=== PATIENT | female | born 1965 | race Caucasian/White ===

== ENCOUNTER 2018-05-15 13:34 | Inpatient (IN) | payer OTHER ==
[~2018-05-15] VITALS: Ht 162.6 cm; Wt 128.8 kg
[2018-05-15] MEDS ORDERED: SYNTHROID137 MCG PO (13:41)
[2018-05-15] MEDS ORDERED: HYDROCHLOROTH12.5 M1 PO (13:41)
[2018-05-15] MEDS ORDERED: PRINIVIL20 MG PO (13:42)
[2018-05-15 15:17] LABS: BASOPHILS 0.6 % (0-2); EOSINOPHILS 3.3 % (0-7); HEMATOCRIT 39.7 % (36.0-48.0); IMMATURE GRANULOCYTES 0.2 % (0-5); LYMPHOCYTES 43.8 % (15-50); MCH 30.2 pg (26.0-34.0); MCHC 32.7 g/dL (31.0-37.0); MCV 92.3 fL (80.0-100.0); MEAN PLATELET VOLUME 9.5 fL (7.4-10.4); MONOCYTES 10.1 % (2-11); RDW 14.8 % (11.5-14.5); WBC 4.8 10x3/uL (4.8-10.8)
[2018-05-15 15:29] LABS: PLATELET COUNT 252 10x3/uL (130-400)
[2018-05-15 15:34] LABS: ALBUMIN 3.5 g/dL (3.4-5.0); ALKALINE PHOSPHATASE 73 U/L (46-116); ALT (SGPT) 29 U/L (10-68); BILIRUBIN - TOTAL 0.34 mg/dL (0.2-1.3); CALC OSMOLALITY 278 mosm/kg (275-300); CALCIUM 8.4 mg/dL (8.5-10.1); CARBON DIOXIDE 27.8 mmol/L (21.0-32.0); CHLORIDE - SERUM 106 mmol/L (98-107); CREATININE - SERUM 1.1 mg/dL (0.6-1.3); GLUCOSE 94 mg/dL (74-106); POTASSIUM - SERUM 4.1 mmol/L (3.5-5.1); PROTEIN - SERUM 7.6 g/dL (6.4-8.2); SODIUM 139 mmol/L (136-145); UREA NITROGEN 14 mg/dL (7-18); eGFR NON AFRICAN AMERICAN 55 mL/min (90-120)
[2018-05-15 15:44] LABS: CKMB 3.4 U/L (0.0-3.6); CREATINE KINASE 197 UL (21-215); PRO BNP 1003 pg/mL (0-125)
[2018-05-15 16:08] LABS: APTT 26.6 SECONDS (22.8-39.4); INR 0.98 (0.85-1.17); PROTIME 12.6 SECONDS (11.6-15.0)
[2018-05-15 19:30] VITALS: BP 142/91
[2018-05-15 21:33] VITALS: BP 125/78; BMI 49.6
[2018-05-15 22:50] VITALS: BP 125/78
[2018-05-16 01:58] VITALS: BP 126/65
[2018-05-16 05:21] LABS: BASOPHILS 0.9 % (0-2); EOSINOPHILS 3.8 % (0-7); HEMOGLOBIN 12.5 g/dL (12-16); IMMATURE GRANULOCYTES 0.2 % (0-5); LYMPHOCYTES 49.8 % (15-50); MCH 30.1 pg (26.0-34.0); MCHC 32.9 g/dL (31.0-37.0); MCV 91.6 fL (80.0-100.0); MEAN PLATELET VOLUME 9.7 fL (7.4-10.4); MONOCYTES 8.5 % (2-11); NEUTROPHILS 36.8 % (40-80); PLATELET COUNT 259 10x3/uL (130-400); RBC 4.15 10x6/uL (4.00-5.40); RDW 14.7 % (11.5-14.5); WBC 4.5 10x3/uL (4.8-10.8)
[2018-05-16 05:41] LABS: ALBUMIN 3.2 g/dL (3.4-5.0); ANION GAP 11.9 mmol/L (8-16); BILIRUBIN - TOTAL 0.42 mg/dL (0.2-1.3); CALCIUM 8.4 mg/dL (8.5-10.1); CARBON DIOXIDE 25.1 mmol/L (21.0-32.0); CREATININE - SERUM 1.1 mg/dL (0.6-1.3)
[2018-05-16 06:15] VITALS: BP 118/85
[2018-05-16 07:56] VITALS: BP 128/77
[2018-05-16 10:44] VITALS: BP 133/82
[2018-05-16 14:17] VITALS: BP 118/83
[2018-05-16 20:00] VITALS: BP 134/89
[2018-05-17 04:00] VITALS: BP 123/73
[2018-05-17 05:59] LABS: HEMATOCRIT 39.1 % (36.0-48.0); HEMOGLOBIN 12.7 g/dL (12-16); MCH 29.8 pg (26.0-34.0); MCHC 32.5 g/dL (31.0-37.0); MCV 91.8 fL (80.0-100.0); MEAN PLATELET VOLUME 9.7 fL (7.4-10.4); PLATELET COUNT 248 10x3/uL (130-400); RBC 4.26 10x6/uL (4.00-5.40); RDW 14.6 % (11.5-14.5); WBC 4.2 10x3/uL (4.8-10.8)
[2018-05-17 06:06] LABS: APTT 41.2 SECONDS (22.8-39.4); INR 1.03 (0.85-1.17); PROTIME 13.1 SECONDS (11.6-15.0)
[2018-05-17 06:24] LABS: ANION GAP 11.9 mmol/L (8-16); CALCIUM 8.6 mg/dL (8.5-10.1); CREATININE - SERUM 0.9 mg/dL (0.6-1.3); POTASSIUM - SERUM 3.9 mmol/L (3.5-5.1); THYROID STIMULATING HORMONE 1.59 uIU/mL (0.36-3.74)
[2018-05-17 07:21] LABS: EOSINOPHILS 3 % (0-7); LYMPHOCYTES 55 % (15-50); MONOCYTES 4 % (2-11); NEUTROPHILS 38 % (40-80); PLATELET ESTIMATE NORMAL
[2018-05-17 07:22] LABS: HYPOCHROMASIA OCC
[2018-05-17 08:19] VITALS: BP 121/86
[2018-05-17 11:42] VITALS: BP 145/88; Ht 162.6 cm; Wt 128.8 kg
[2018-05-17] MEDS ORDERED: ELIQUIS5 MG PO (13:13)
[2018-05-18 06:15] LABS: CA 15-3 15.8 U/mL (0.0-25.0); CA125 7.5 U/mL (0.0-38.1); CEA 1.6 ng/mL (0.0-4.7)
[2018-05-18 11:21] LABS: FOLATE (FOLIC ACID) - SERUM 12.7 ng/mL (>3.0)
[2018-05-18 15:23] LABS: SPE - A/G RATIO 0.9 (0.7-1.7); SPE - ALBUMIN 3.2 g/dL (2.9-4.4); SPE - ALPHA-1 GLOBULIN 0.2 g/dL (0.0-0.4); SPE - ALPHA-2 GLOBULIN 0.8 g/dL (0.4-1.0); SPE - BETA GLOBULIN 1.2 g/dL (0.7-1.3); SPE - GAMMA GLOBULIN 1.2 g/dL (0.4-1.8); SPE - M-SPIKE Not Observed g/dL (Not Observed); SPE - TOTAL PROTEIN 6.6 g/dL (6.0-8.5)
[2018-05-22 22:07] LABS: FACTOR II DNA ANALYSIS Negative (())
== END 2018-05-17 14:43 | disposition home or self-care (01) | DRG 176 ==
LOC: D.ER 13:34 → D.EDHOLD 16:33 → D.M2 19:16 → OBSVTIME 19:16 → D.M2 19:53
PROVIDERS: Family Medicine; Internal Medicine Hematology & Oncology; Radiology Vascular & Interventional Radiology
DX: I26.99 Other pulmonary embolism without acute cor pulmonale (principal); Z68.42 Body mass index [BMI] 45.0-49.9, adult; I10 Essential (primary) hypertension; E03.9 Hypothyroidism, unspecified; N28.1 Cyst of kidney, acquired; M35.00 Sjogren syndrome, unspecified; E66.01 Morbid (severe) obesity due to excess calories

== ENCOUNTER → 2018-10-02 14:40 | Outpatient (CLI) | payer OTHER ==
[2018-05-17 11:42] VITALS: BMI 48.7
[~2018-10-02 14:40] MED LIST: ELIQUIS5 MG PO; HYDROCHLOROTH12.5 M1 PO; PRINIVIL20 MG PO; SYNTHROID137 MCG PO
== END | disposition home or self-care (01) ==
LOC: D.MRI 14:40
DX: M46.96 Unspecified inflammatory spondylopathy, lumbar region (principal)

== ENCOUNTER → 2018-11-02 09:05 | Outpatient (CLI) | payer OTHER ==
[2018-05-17 11:42] VITALS: BMI 48.7
== END | disposition home or self-care (01) ==
LOC: D.CT 09:05
PROVIDERS: ATTEND Internal Medicine Hematology & Oncology
DX: C64.9 Malignant neoplasm of unspecified kidney, except renal pelvis (principal)

== ENCOUNTER → 2019-01-09 16:27 | Outpatient (CLI) | payer OTHER | END | disposition home or self-care (01) | LOC: D.LABREF 16:27 | DX: M17.11 Unilateral primary osteoarthritis, right knee (principal); Z11.8 Encounter for screening for other infectious and parasitic diseases ==

== ENCOUNTER 2019-01-11 14:49 | Inpatient (IN) | payer BC ==
[~2019-01-11] VITALS: Ht 162.6 cm; Wt 99.8 kg
[2019-02-12] MEDS ORDERED: BACTROBAN NASAL1 GM NASAL (14:26)
[2019-02-12] MEDS ORDERED: TYLENOL PO (14:31)
[2019-02-13 11:47] LABS: BASOPHILS 0.9 % (0-2); EOSINOPHILS 2.5 % (0-7); HEMATOCRIT 41.8 % (36.0-48.0); HEMOGLOBIN 13.8 g/dL (12-16); LYMPHOCYTES 46.8 % (15-50); MCH 30.9 pg (26.0-34.0); MCV 93.5 fL (80.0-100.0); MEAN PLATELET VOLUME 9.7 fL (7.4-10.4); MONOCYTES 10.4 % (2-11); NEUTROPHILS 39.4 % (40-80); RBC 4.47 10x6/uL (4.00-5.40); RDW 14.5 % (11.5-14.5); WBC 4.4 10x3/uL (4.8-10.8)
[2019-02-13 11:50] LABS: PLATELET COUNT 298 10x3/uL (130-400)
[2019-02-13 12:00] LABS: CARBON DIOXIDE 30.1 mmol/L (21.0-32.0); CREATININE - SERUM 1.1 mg/dL (0.6-1.3); POTASSIUM - SERUM 4.1 mmol/L (3.5-5.1)
[2019-02-13 12:16] LABS: APPEARANCE CLEAR (CLEAR); BILIRUBIN NEGATIVE (NEGATIVE); COLOR YELLOW (YELLOW); GLUCOSE NEGATIVE (NEGATIVE); KETONE NEGATIVE (NEGATIVE); NITRITE NEGATIVE (NEGATIVE); PROTEIN NEGATIVE (NEGATIVE); SPECIFIC GRAVITY 1.005 (1.005-1.020); UROBILINOGEN NORMAL (NORMAL)
[2019-02-13 12:21] LABS: APTT 26.5 SECONDS (22.8-39.4); INR 1.14 (0.85-1.17); PROTIME 14.1 SECONDS (11.6-15.0)
[2019-02-18] MEDS ORDERED: COZAAR50 MG (07:58)
[2019-02-18] MEDS ORDERED: LOVENOX120 MG/0.8 SQ (08:01)
[2019-02-18 08:19] VITALS: BP 144/94; BMI 54.2
[2019-02-18 14:01] VITALS: BP 104/66
[2019-02-18 19:50] VITALS: BP 104/66
[2019-02-18 20:00] VITALS: BP 104/57
[2019-02-19] VITALS: BP 96/44
[2019-02-19 04:00] VITALS: BP 94/55
[2019-02-19 06:04] LABS: HEMATOCRIT 34.2 % (36.0-48.0); HEMOGLOBIN 10.8 g/dL (12-16); MCH 29.8 pg (26.0-34.0); MCHC 31.6 g/dL (31.0-37.0); MCV 94.5 fL (80.0-100.0); MEAN PLATELET VOLUME 9.8 fL (7.4-10.4); RBC 3.62 10x6/uL (4.00-5.40); RDW 14.7 % (11.5-14.5); WBC 5.8 10x3/uL (4.8-10.8)
[2019-02-19 09:30] VITALS: BP 113/72
[2019-02-19 10:26] LABS: CKMB 2.5 U/L (0.0-3.6); CREATINE KINASE 519 UL (21-215); CREATININE - SERUM 1.1 mg/dL (0.6-1.3)
[2019-02-19 10:28] LABS: TROPONIN-I < 0.017 ng/mL (0.000-0.060)
[2019-02-19 14:01] VITALS: BP 120/75
[2019-02-19 17:42] VITALS: BP 122/73
[2019-02-19 17:55] VITALS: Ht 162.6 cm; Wt 99.8 kg
[2019-02-19 20:00] VITALS: BP 156/82
[2019-02-20] VITALS: BP 123/67
[2019-02-20 04:00] VITALS: BP 105/68
[2019-02-20 05:13] LABS: HEMATOCRIT 32.8 % (36.0-48.0); HEMOGLOBIN 10.4 g/dL (12-16); MCH 30.1 pg (26.0-34.0); MCHC 31.7 g/dL (31.0-37.0); MCV 94.8 fL (80.0-100.0); MEAN PLATELET VOLUME 9.7 fL (7.4-10.4); RBC 3.46 10x6/uL (4.00-5.40); RDW 15.1 % (11.5-14.5); WBC 4.6 10x3/uL (4.8-10.8)
[2019-02-20 08:29] VITALS: BP 145/69
[2019-02-20 13:26] VITALS: BP 117/72
--- NOTE | 2019-02-20 14:47 | MORECARE ---
CASE MANAGEMENT DISCHARGE SUMMARY PATIENT: MICK PATEL UNIT: [id number] ADM DATE: 02/18/19 AGE: 53 : 61 SEX: F ROOM/BED: D.2211 AUTHOR: ROM CAMACHO PHYSICIAN: REFERRING PHYSICIAN: JUDY POLANCO MD DATE OF SERVICE: 02/20/19 Discharge Plan Patient Name: MICK PATEL [facility] : 1965 Planned Disposition: Home or Self Care Anticipated Discharge Date: Discharge Date: Expected LOS: Initial Reviewer: [email or web address] Initial Review Date: 02/18/2019 Generated: 02/20/19 3:47 pm DCPIA - Discharge Planning Initial Assessment Updated by [email or web address]: Denisa Bruce on 02/20/19 2:46 pm * Is the patient Alert and Oriented? Yes * How many steps to enter\exit or inside your home? * PCP [place] * Pharmacy [facility] * Preadmission Environment Home with Family * ADLs Independent * Equipment Bedside Commode Walker * Other Equipment CPM * List name and contact numbers for known caregivers / representatives who currently or will assist patient after discharge: ABDOUL JORGE [phone] * Verbal permission to speak to the caregivers and representatives has been obtained from the patient. N/A * Community resources currently utilized None * Additional services required to return to the preadmission environment? Yes * Can the patient safely return to the preadmission environment? Yes * Has this patient been hospitalized within the prior 30 days at any hospital? No Patient Name: MICK PATEL Page [id number] at 1447 All edits/amendments must be made on the electronic document DICTATION DATE: 02/20/191446 MACHINE BURRER: JOSE DE JESUS 02/20/191446 RPT#: [id number] DC DATE: STATUS: ADM IN [facility] [address] [place] [address] END OF REPORT
--- NOTE | 2019-02-20 15:08 | MORECARE ---
CASE MANAGEMENT DISCHARGE SUMMARY PATIENT: MICK PATEL UNIT: [id number] ADM DATE: 02/18/19 AGE: 53 : 61 SEX: F ROOM/BED: D.2211 AUTHOR: JANICE,DOC PHYSICIAN: REFERRING PHYSICIAN: JUDY POLANCO MD DATE OF SERVICE: 02/20/19 Discharge Plan Patient Name: MICK PATEL Facility: [facility]:[place] : 1965 Planned Disposition: Home or Self Care Anticipated Discharge Date: Discharge Date: Expected LOS: Initial Reviewer: [email or web address] Initial Review Date: 02/18/2019 Generated: 02/20/19 4:07 pm Comments DCP- Discharge Planning Updated by [email or web address]: Denisa Bruce on 02/20/19 1:[address] Patient Name: MICK PATEL Admission Status: Elective Accout number: [id number] Admission Date: 02-18-2019 : 1965 Admission Diagnosis: Attending: JUDY POLANCO Current LOS: 2 Anticipated DC Date: Planned Disposition: Home or Self Care Primary Insurance: [employer] EXCH[employer] Discharge Planning Comments: CM met with patient to complete initial dc planning assessment. CM educated patient on the CM role and verbal consent given by patient to complete assessment. Patient lives at home with her where she was independent with her care. At discharge patient plans to return home and feels this is a safe discharge. She is concerned about her therapy and going home. We will see how she progresses with therapy tomorrow. CM discussed availability of home health, rehab services, and medical equipment. CPM, walker, bedside commode at home. She would like to go to OP PT at [facility]. We will see how she does before making that appointment. Patient denied known discharge needs at this time. CM will continue to follow and will assist as needed with dc plans/needs. Industrial Workers: Denisa Bruce DCPIA - Discharge Planning Initial Assessment Updated by [email or web address]: Denisa Bruce on 02/20/19 2:46 pm * Is the patient Alert and Oriented? Yes * How many steps to enter\exit or inside your home? * PCP [place] * Pharmacy [facility] * Preadmission Environment Home with Family * ADLs Independent * Equipment Bedside Commode Walker * Other Equipment CPM * List name and contact numbers for known caregivers / representatives who currently or will assist patient after discharge: ABDOUL PATEL [phone] * Verbal permission to speak to the caregivers and representatives has been obtained from the patient. N/A * Community resources currently utilized None * Additional services required to return to the preadmission environment? Yes * Can the patient safely return to the preadmission environment? Yes * Has this patient been hospitalized within the prior 30 days at any hospital? No Last DP export: 02/20/19 1:47 p Patient Name: MICK PATEL Page [id number] at 1508 All edits/amendments must be made on the electronic document DICTATION DATE: 02/20/191506 CHEMICAL MACHINE TENDER: JOSE DE JESUS 02/20/191506 RPT#: [id number] DC DATE: STATUS: ADM IN [facility] [address] [place] [address] END OF REPORT
--- NOTE | 2019-02-20 15:43 | OP ---
PATIENT NAME: MICK PATEL MEDICAL RECORD: [id number] :[birth year] LOCATION:D.MS [address] ADMISSION DATE:02/18/19 SURGEON: JUDY POLANCO MD DATE OF OPERATION: 02/18/2019 PREOPERATIVE DIAGNOSIS: Degenerative arthritis, right knee. POSTOPERATIVE DIAGNOSIS: Degenerative arthritis, right knee. PROCEDURE: Right total knee arthroplasty. SURGEON: Judy Polanco MD STATUE CARVER: SKY Henry INTRAOPERATIVE COMPLICATIONS: None. SUMMARY OF PATHOLOGIC FINDINGS: The patient was indeed found to have grade IV degenerative arthritis of medial femoral condyle and patellofemoral joint, consistent with preoperative symptoms and x-rays. OPERATIVE SUMMARY IN DETAIL: After obtaining the appropriate preoperative orthopedic surgery consent as well as anesthetic consultation, evaluation, and clearance, the patient was brought to the operating room and placed on the operating table in the supine position. After general laryngeal mask airway was administered, tourniquet was placed about the proximal aspect of the patient's right lower extremity. The right lower extremity was then prepped and draped in routine sterile fashion. At this time, the appropriate time-out was performed, going over all specific patient identifiers and allergies as well as meds given. All were in agreement. At this point, the leg was elevated and exsanguinated. Tourniquet was inflated to 350 mmHg. Routine midline incision was taken down for paramedian arthrotomy, which was performed. The patella was then everted and distal femur was exposed. Soft tissue excision was done in usual fashion followed by intramedullary guide hole created for intramedullary guided distal femoral cut. Having completed this, the tibia was completely exposed. Again, soft tissue excision was done in the usual fashion. Intramedullary guide hole was created for intramedullary guided tibial cut. After the cuts were made, measurements were taken and size 4 was determined for distal femur and proximal tibia. Size 4 chamfer cuts were created. Trials corresponding to the final implants were put into place, taken through range of motion, and found to be stable in all planes. Distal femoral and proximal tibia were prepared for press-fit arthroplasty. Patella was cut and again it was prepared for press-fit arthroplasty. At this point, the wound was irrigated with pulsatile lavage guest attendant. All fragments were removed and all soft tissue that needed to be removed was likewise removed. Having completed this, press-fit components were put into place with excellent fit. Knee was taken through range of motion and found to be stable in all planes with good patellar tracking. At this point, wound closure was achieved by SKY Jenkins, with #2 Ethibond followed by #1 Vicryl, 2-0 Vicryl, and skin alpesh. Prior to closing the capsulotomy, the knee was infiltrated with 1 gram of vancomycin and 1 gram of tobramycin. Sterile dressings were applied. Tourniquet was deflated. The patient was awakened and taken to recovery room in stable condition. All final needle and sponge counts were correct. TRANSINT:[id number] Voice Confirmation ID: [id number] DOCUMENT ID: [id number] OPERATIVE REPORT [id number] MICK PATEL MD, JUDY DENISE at 1543 CC: [id number] DICTATION DATE: 02/18/19 1324 DEVELOPMENT GEOLOGIST: 02/18/19 1411 ADM IN [place] [id number] [place] [id number]
[2019-02-20 16:32] VITALS: BP 123/60
[2019-02-20 21:41] VITALS: BP 120/74
[2019-02-21 01:15] VITALS: BP 111/63
[2019-02-21 04:51] VITALS: BP 112/72
[2019-02-21 10:01] VITALS: BP 128/77
[2019-02-21 10:11] LABS: % SATURATION 10 % (15-55); IRON 30 ug/dl (35-150); TOTAL IRON BIND CAPACITY 277 ug/dl (260-445); UNSAT IRON BIND CAPACITY 247 ug/dl (150-375)
[2019-02-21 12:43] VITALS: BP 128/66
[2019-02-21 19:09] VITALS: BP 146/73
[2019-02-21 20:00] VITALS: BP 120/72
[2019-02-22 04:00] VITALS: BP 136/62
[2019-02-22] MEDS ORDERED: PERCOCET 10-321 EAC1 PO (06:22)
[2019-02-22 08:30] VITALS: BP 129/73
--- NOTE | 2019-02-22 11:59 | MORECARE ---
CASE MANAGEMENT DISCHARGE SUMMARY PATIENT: MICK PATEL UNIT: [id number] ADM DATE: 02/18/19 AGE: 53 : 61 SEX: F ROOM/BED: D.2211 AUTHOR: JANICE,DOC PHYSICIAN: REFERRING PHYSICIAN: JUDY POLANCO MD DATE OF SERVICE: 02/22/19 Discharge Plan Patient Name: MICK PATEL Facility[facility]:[place] : 1965 Planned Disposition: Home or Self Care Anticipated Discharge Date: Discharge Date: Expected LOS: Initial Reviewer: [email or web address] Initial Review Date: 02/18/2019 Generated: 02/22/19 12:59 pm Comments DCP- Discharge Planning Updated by [email or web address]: Denisa Bruce on 02/22/19 10:[address] Patient discharging home today, I have set up her OP PT appointment for MondayFebruary 25 at 1:00. Copy will be given to patient in her DC packet and the order was faxed to [facility] and I spoke with Carlota. CM to follow and assist with DC planning DCP- Discharge Planning Updated by [id number]: Denisa Bruce on 02/20/19 1:[address] Patient Name: MICK PATEL Admission Status: Elective Accout number: [id number] Admission Date: 02-18-2019 : 1965 Admission Diagnosis: Attending: JUDY POLANCO Current LOS: 2 Anticipated DC Date: Planned Disposition: Home or Self Care Primary Insurance: [employer] [facility] EXCHANGE Discharge Planning Comments: CM met with patient to complete initial dc planning assessment. CM educated patient on the CM role and verbal consent given by patient to complete assessment. Patient lives at home with her where she was independent with her care. At discharge patient plans to return home and feels this is a safe discharge. She is concerned about her therapy and going home. We will see how she progresses with therapy tomorrow. CM discussed availability of home health, rehab services, and medical equipment. CPM, walker, bedside commode at home. She would like to go to OP PT at [facility]. We will see how she does before making that appointment. Patient denied known discharge needs at this time. CM will continue to follow and will assist as needed with dc plans/needs. Hammerer Tab: Denisa Bruce DCPIA - Discharge Planning Initial Assessment Updated by [email or web address]: Denisa Bruce on 02/20/19 2:46 pm * Is the patient Alert and Oriented? Yes * How many steps to enter\exit or inside your home? * PCP [place] * Pharmacy [facility] * Preadmission Environment Home with Family * ADLs Independent * Equipment Bedside Commode Walker * Other Equipment CPM * List name and contact numbers for known caregivers / representatives who currently or will assist patient after discharge: ABDOUL PATEL [phone] * Verbal permission to speak to the caregivers and representatives has been obtained from the patient. N/A * Community resources currently utilized None * Additional services required to return to the preadmission environment? Yes * Can the patient safely return to the preadmission environment? Yes * Has this patient been hospitalized within the prior 30 days at any hospital? No Last DP export: 02/20/19 2:08 p Patient Name: MICK PATEL Page 39462 at 1159 All edits/amendments must be made on the electronic document DICTATION DATE: 02/22/19 1159 ASSOCIATE PROFESSOR OF HISTORY: JOSE DE JESUS 02/22/19 1159 RPT#: [id number] DC DATE: STATUS: ADM IN [facility] [address] [place] [address] END OF REPORT
== END 2019-02-22 13:22 | disposition home or self-care (01) | DRG 470 ==
LOC: D.SDCHOLD 02-18 06:55 → D.MS 02-18 06:55 → D.SDCHOLD 02-18 08:45 → D.MS 02-18 13:42
PROVIDERS: Internal Medicine Hematology & Oncology; ADMIT Orthopaedic Surgery; ATTEND Orthopaedic Surgery
PROC: 0SRC0J9 Replacement of Right Knee Joint with Synthetic Substitute, Cemented, Open Approach (ICD-10-PCS; principal; 2019-02-18 09:30)
DX: M17.11 Unilateral primary osteoarthritis, right knee (principal); J98.11 Atelectasis; I10 Essential (primary) hypertension; M35.00 Sjogren syndrome, unspecified

== ENCOUNTER → 2019-05-16 10:40 | Outpatient (CLI) | payer BC ==
[~2019-05-16 10:40] MED LIST changes: +BACTROBAN NASAL1 GM NASAL; +COZAAR50 MG; +LOVENOX120 MG/0.8 SQ; +PERCOCET 10-321 EAC1 PO; +TYLENOL PO
[2019-05-16 11:37] LABS: BASOPHILS 0.8 % (0-2); EOSINOPHILS 3.2 % (0-7); HEMATOCRIT 40.4 % (36.0-48.0); HEMOGLOBIN 12.8 g/dL (12-16); IMMATURE GRANULOCYTES 0.2 % (0-5); LYMPHOCYTES 39.8 % (15-50); MCH 30.5 pg (26.0-34.0); MCHC 31.7 g/dL (31.0-37.0); MCV 96.2 fL (80.0-100.0); MEAN PLATELET VOLUME 9.6 fL (7.4-10.4); MONOCYTES 11.4 % (2-11); NEUTROPHILS 44.6 % (40-80); WBC 5.3 10x3/uL (4.8-10.8)
[2019-05-16 11:50] LABS: ALBUMIN 3.5 g/dL (3.4-5.0); ANION GAP 11.6 mmol/L (8-16); BILIRUBIN - TOTAL 0.41 mg/dL (0.2-1.3); CALCIUM 8.7 mg/dL (8.5-10.1); CARBON DIOXIDE 29.5 mmol/L (21.0-32.0); POTASSIUM - SERUM 4.1 mmol/L (3.5-5.1); PROTEIN - SERUM 7.7 g/dL (6.4-8.2)
[2019-05-16 11:58] LABS: PLATELET COUNT 316 10x3/uL (130-400)
[2019-05-16 11:59] LABS: APTT 29.1 SECONDS (22.8-39.4)
[2019-05-16 12:00] LABS: D-DIMER-QUANTITATIVE 0.72 ug/mLFEU (0.20-0.54)
[2019-05-16 12:01] LABS: INR 1.01 (0.85-1.17); PROTIME 12.8 SECONDS (11.6-15.0)
== END | disposition home or self-care (01) ==
LOC: D.CT 10:40
PROVIDERS: ATTEND Internal Medicine Hematology & Oncology
DX: R79.1 Abnormal coagulation profile (principal); I26.99 Other pulmonary embolism without acute cor pulmonale

== ENCOUNTER → 2019-06-12 08:31 | Outpatient (CLI) | payer BC ==
--- NOTE | 2019-06-19 14:07 | EC ---
PATIENT:MICK PATEL DATE OF SERVICE: 06/12/19 SEX: F MEDICAL RECORD: [id number] DATE OF : 61 LOCATION:[facility] AGE OF PATIENT: 54 ADMISSION DATE: 06/12/19 REFERRING PHYSICIAN: INTERPRETING PHYSICIAN: MORGAN PIMENTEL MD ECHOCARDIOGRAM REPORT ECHO CHARGES 4 ECHO COMPLETE Date: 06/12/19 CLINICAL DIAGNOSIS: SOB/ANGINA ECHOCARDIOGRAPHIC MEASUREMENTS (adult normal given) AC root (d.<3.7cm) 3.2 cm LV Septum d (<1.2 cm> 1.2 cm Valve Excursion 2.0 cm LV Septum (systole) 1.9 cm Left Atria (s.<4.0cm> 4.2 cm LVPW d(<1.2cm) 1.3 cm RV (d.<2.3cm) 3.2 cm LVPW (sytole) 1.8 cm LV diastole(<5.6CM) 5.1 cm MV E-F(>70mm/sec) cm LV systole 2.7 cm LVOT Diameter 2.0 cm MV exc.(>10mm) cm Est.ejection fraction (50-75%) % DOPPLER: LVIT cm/sec A 58.0 cm/sec E 77.0 cm/sec LA cm/sec RVSP 33.0 mmHg LVOT 116 cm/sec AOP1/2T m/s Asc. Ao 156 cm/sec RVOT 51.0 cm/sec RA cm/sec PA 107 cm/sec AV Gradient Peak 9.7 mmHg AV Mean 5.9 mmHg AV Area 2.2 cm MV Gradient Peak 2.9 mmHg MV Mean 1.2 mmHg MV Area cm COMMENTS: OP - HC Ring Spinner: 1 ANURAG MIRANDAOE Hotel Engineer: 1 Dr. Pimentel TAPE# PACS Pericardial Effusion N DATE OF SERVICE: FINDINGS: 1. Left ventricular chamber size is within normal limits. Left ventricular systolic function is normal. Overall ejection fraction estimated at 55% to 60%. 2. Left atrium, right atrium and right ventricular chamber sizes are mildly dilated. Left atrium measures at 4.2 cm. 3. Valvular structures have normal structure and motion. 4. Doppler interrogation reveals no significant valvular insufficiency or stenosis. Pulmonary systolic pressure estimated at 33 mmHg. ECHOCARDIOGRAM REPORT [id number] MICK PATEL 5. No evidence of pericardial effusion or left ventricular thrombus. TRANSINT:[id number] Voice Confirmation ID: [id number] DOCUMENT ID: [id number] MORGAN PIMENTEL MD at 1407 CC: [id number] DICTATION DATE: 06/12/19 160 PRINTED CIRCUIT BOARDS BEVELER: 06/13/19 0016 DEP CLI 06/12/19 [place] [id number] [place] [address]
--- NOTE | 2019-06-19 14:07 | ST ---
PATIENT:MICK PATEL MEDICAL RECORD: [id number] SEX: F LOCATION:[facility] ORDER #: ADMISSION DATE: 06/12/19 AGE OF PATIENT: 54 REFERRING PHYSICIAN: INTERPRETING PHYSICIAN: MORGAN CHRISTY MD DATE OF SERVICE: 06/12/2019 INDICATION: Angina, shortness of breath, and hypertension. She was exercised on standard Lexiscan protocol with 33 mCi of sestamibi injected at peak stress, 11 mCi used previously for rest images. FINDINGS: Gated SPECT reveals preserved ejection fraction at 62% with good wall motion and thickening and brightening throughout all segments. SPECT imaging Cardiolite was used as myocardial fusion agent. There is homogeneous uptake throughout all segments at rest and stress with no evidence of inducible ischemia or previous infarction. OVERALL IMPRESSION: 1. This is a normal nuclear stress test with no evidence of inducible ischemia or previous infarction. 2. Gated SPECT reveals a preserved ejection fraction at 62%. In this patient with ongoing symptomatology, the current scan does not suggest the presence of hemodynamically significant coronary artery disease. Evaluate noncardiac etiology of chest pain. TRANSINT:[id number] Voice Confirmation ID: [id number] DOCUMENT ID: [id number] MORGAN CHRISTY MD at 1407 CC: BRANDEN LASSITER MD [id number] DICTATION DATE: 06/12/19 1606 DRIVER'S EDUCATION INSTRUCTOR: 06/13/19 0433 DEP CLI 06/12/19 [facility] [address] [place] [address]
== END | disposition home or self-care (01) ==
LOC: D.HCCECHO 08:31
PROVIDERS: ATTEND Internal Medicine Interventional Cardiology
DX: I20.9 Angina pectoris, unspecified (principal); R06.02 Shortness of breath

== ENCOUNTER → 2019-07-02 08:22 | Outpatient (CLI) | payer BC | END | disposition home or self-care (01) | LOC: D.NM 06-26 09:00 | PROVIDERS: ATTEND Family Medicine Adult Medicine | DX: R10.9 Unspecified abdominal pain (principal) ==

== ENCOUNTER 2019-07-31 06:00 | Day surgery (SDC) | payer BC ==
[2019-07-30 09:50] LABS: HEMOGLOBIN 13.3 g/dL (12-16); MCH 30.1 pg (26.0-34.0); MCHC 31.7 g/dL (31.0-37.0); MEAN PLATELET VOLUME 9.2 fL (7.4-10.4); RBC 4.42 10x6/uL (4.00-5.40); RDW 14.7 % (11.5-14.5); WBC 3.6 10x3/uL (4.8-10.8)
[2019-07-30 09:53] LABS: ANION GAP 10.3 mmol/L (8-16); CALCIUM 8.9 mg/dL (8.5-10.1); CARBON DIOXIDE 28.7 mmol/L (21.0-32.0)
--- NOTE | 2019-07-30 10:19 | NUR ---
ELIZABETH NOTE: PATIENT REPORTS CURRENTLY BEING TREATED FOR UTI BY DR. MCHUGH. 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 DR. JESSICA'S OFFICE STAFF NOTIFIED OF ABOVE.
[~2019-07-31] VITALS: Ht 162.6 cm; Wt 141.1 kg
[~2019-07-31 06:00] MED LIST changes: -COZAAR50 MG; +COZAAR50 MG PO; +FUROSEMIDE20 MG PO; +K-TAB10 MEQ PO; +LOVENOX INJ100 MG/ML INJ; +MYRBETRIQ50 MG PO
[2019-07-31 06:25] VITALS: BP 150/96; Ht 162.6 cm; Wt 141.1 kg
--- NOTE | 2019-07-31 08:47 | NUR ---
PATIENT HAS BRUISING ON ABDOMEN, LARGE ONE ON RIGHT SIDE AND SMALLER ON LEFT, TWORLEY.
[2019-07-31] MEDS ORDERED: HYDROCODON-ACE1 EAC7 PO (09:00)
--- NOTE | 2019-07-31 09:48 | NUR ---
AT 0930 PATIENT HAD INCREASED NAUSEA. CONSULTED ANESTHESIA. VERBAL ORDERS RECEIVED ADMINISTER 12.5MG IV NOW IN PACU. ORDERS RECEIVED AND IMPLEMENTED. WILL CONTINUE TO MONITOR.
--- NOTE | 2019-07-31 10:34 | NUR ---
1008-REC'D FROM RR. DROWSY EASILY AROUSED,REPORTS NAUSEA,HAS NO VOMITING. VSS. 02 VIA N/C 2L. STERI STRIPS TO 3 AREAS OF ABD,CDI. DENIES PAIN. REVIEWED POST OPERATIVE DISCHARGE CRITERIA.VERBALIZED UNDERSTANDING. REPORTS SHE IS USUALLY NAUSEATED A FEW HOURS AFTER SURGERY. HAD ZOFRAN 4MG IN SURGERY AND RR. ICE CHIPS AT BEDSIDE,CL IN EASY REACH. FAMILY AT BEDSIDE.
--- NOTE | 2019-07-31 10:36 | NUR ---
1020-JAIR LEMON LINE TO ROOM. CONTINUE TO REPORT NAUSEA WITHOUT VOMITING. VSS. CL IN E[place]Y RE[place].
--- NOTE | 2019-07-31 13:00 | NUR ---
1110-CONTINUE TO BE RESTING WELL.VSS. NO OBVIOUS DISTRESS.02 VIA N/C 1L. DENIES PAIN. STERI STRIPS TO ABD CDI.
--- NOTE | 2019-07-31 13:13 | NUR ---
1210-AWAKE AND ALERT.DENIES PAIN,VSS.ON ROOM AIR. STERI STRIPS CDI TO ABD. DENIES NAUSEA
--- NOTE | 2019-07-31 13:14 | NUR ---
1305-IV REMOVED FROM LAC WITH CATH INTACT,DISPOSED INTO SHARPS.COVERED SITE WITH TIMOTHYSECURED WIT BANDAID. REVIEWED DISCHARGE INSTRUCTIONS AND FOLLOW UP APPOINTMENT.VERBALIZED UNDERSTANDING. VSS.DENIES PAIN. VERY PLEASANT. SIPPING ON JAIR COLA.CL IN [place] RE[place]. AWAITING FOR TO DRIVE PT HOME
--- NOTE | 2019-07-31 13:17 | NUR ---
1317-ESCORTED PT OUT WITH SPOUSE AWAITING TO DRIVE HOME. DISCHARGE PAPERWORK IN HAND.STABLE,PLEASANT. DENIES COMPLAINTS
== END 2019-07-31 13:17 | disposition home or self-care (01) ==
LOC: D.OPS 06:00 → D.PAN 08:00 → D.OPS 08:15
PROVIDERS: Anesthesiology; ATTEND Surgery
DX: K80.20 Calculus of gallbladder without cholecystitis without obstruction (principal); K80.80 Other cholelithiasis without obstruction; I10 Essential (primary) hypertension; E66.01 Morbid (severe) obesity due to excess calories; Z68.43 Body mass index [BMI] 50.0-59.9, adult

== ENCOUNTER → 2019-08-28 13:44 | Outpatient (CLI) | payer BC ==
[2019-07-31 06:25] VITALS: BMI 53.5
[~2019-08-28 13:44] MED LIST changes: +HYDROCODON-ACE1 EAC7 PO
== END | disposition home or self-care (01) ==
LOC: D.LAB 13:44 → D.RT 14:00
PROVIDERS: ATTEND Internal Medicine Pulmonary Disease
DX: R06.00 Dyspnea, unspecified (principal)